=== PATIENT | male | born 1955 | race Asian ===

== ENCOUNTER → 2016-07-08 | Outpatient (CLI) | payer OTHER ==
--- NOTE | 2016-07-08 16:06 | KCIC ---
PROCEDURE Single-view chest HISTORY TB followup COMPARISON None available FINDINGS Single-view of the chest is submitted. There is likely emphysema. Heart size is within normal limits. There is no pneumothorax or pleural fluid. There is no lobar consolidation. There is small somewhat nodular opacity of the right suprahilar region. There is mild linear opacity at the right upper lobe probably due to mild fibrotic change. IMPRESSION 1. There is no lobar consolidation, no radiographic findings suggestive of active tuberculosis. 2. There is a somewhat round nodular opacity of the right suprahilar region, possibly due to vessel although nodule not excluded. Three-month radiographic followup unless old exams to confirm stability is advised. 3. There is suspected emphysema. Electronically signed by: Ludin Alcantar MD (Jul 08, 2016 16:05:01)
== END | disposition home or self-care (01) ==
LOC: KCIC 14:35
PROVIDERS: ATTEND Family Medicine
DX: Z11.1 Encounter for screening for respiratory tuberculosis (principal)
CPT/HCPCS: 71010

== ENCOUNTER → 2019-06-20 | Outpatient (CLI) | payer OTHER ==
--- NOTE | 2019-06-20 14:01 | KCIC ---
Single view chest dated 06/20/2019. Comparison made to 07/08/2016. Clinical data indication: TB exposure. FINDINGS: Single upright portable exam performed. Heart and mediastinal contours are stable. Lungs are somewhat hyperinflated but otherwise clear. No consolidation or pleural effusion. No pneumothorax. IMPRESSION: No acute radiographic abnormality. No radiographic evidence of active tuberculosis. Electronically signed by: Noe Pacheco MD (06/20/2019 1:58 PM) [id number]
== END | disposition home or self-care (01) ==
LOC: KCIC 11:03
PROVIDERS: ATTEND Family Medicine
DX: Z20.1 Contact with and (suspected) exposure to tuberculosis (principal)
CPT/HCPCS: 71045